=== PATIENT | male | born 1960 | race Caucasian/White ===

== ENCOUNTER 2016-06-15 17:38 | Emergency (ER) | payer BC ==
[~2016-06-15] VITALS: Ht 182.9 cm; Wt 75.3 kg
[~2016-06-15 17:38] MED LIST: ACYCLOVIR800 MG PO; AVODART0.5 MG PO; FLOMAX0.4 MG PO; GABAPENTIN300 MG PO; JALYN 0.5 MG-0.1 CAP PO; PERCOCET 5/3251 EACH PO; PHENERGAN 25MG.25 M1 PO; PRILOSEC40 MG PO; TAMIFLU 75MG CA75 MG PO; VALACYCLOVIR1 GM PO
[2016-06-15 18:00] LABS: HEMOGLOBIN 14.6 g/dL (14.1-18.0); LYMPH # 2.2 K/mm3 (0.7-4.5)
--- NOTE | 2016-06-15 19:20 | Emergency Room Report ---
History of Present Illness Time Seen by [id number] Presenting Problem in Triage Pt arrived:Walked Presenting Problem:DIAGNOSED WITH THE FLU AND STARTED ON [facility] STATES HE CAN'T KEEP ANYTHING "DOWN OR IN" AND IS COUGHING ALOT Onset of symptoms date/time:/ or onset unknown for:MEDICAL HX UNKNOWN Treatment Prior to Arrival: [employer] Provided by:SELF Sepsis Risk Assessment: Temp: 97.9 B/P: 141/80 MAP: 100 Pulse: 75 Resp: 18 Recent fever? N Clinical Suspician of Infection? N Mental Status: 1 - Regular (Normal Baseline) Sepsis Risk:Low Sepsis Risk Have you (or family members/close friends) recently traveled outside the [place]? N If Yes, where/when: Have you had exposure to infectious disease within the past month? TB? Other? Specify: Comment The patient has been sick since Thursday 5 days ago. He has a cough, vomiting, slight diarrhea. He was seen in the urgent treatment center on 06/12/16 and had a positive influenza B test. He was started on Tamiflu. He is on Tessalon Perles. He says none of this is helping, he thinks the Tamiflu is making him worse, and he is thinks it makes him vomit. He says the Tessalon Perles did not help the cough. He thinks he has vomited 3 times today. ALLERGIES Coded Allergies: ciprofloxacin (From CIPRO) (Mild, 06/15/16) prednisone (Mild, 06/15/16) Home Medications Active Scripts VALACYCLOVIR HCL (Valacyclovir) 1 GM PO TID #30 TAB Prov: 11/01/12 Oxycodone 5MG/[id number] (Oxycodone-Acetaminophen 5-325) 1-2 TAB PO Q4HP #30 TAB Prov: 11/01/12 Gabapentin (Gabapentin 300MG) 300 MG PO TID #90 CAP Prov: 11/01/12 Oseltamivir Phosphate (Tamiflu 75MG Capsule) 75 MG PO BID #10 CAP Prov: 06/12/16 Promethazine Hydrochloride (Phenergan 25MG Tab) 25 MG PO Q6H PRN #20 TAB Prov: 10/28/12 Reported Medications DUTASTERIDE/TAMSULOSIN HCL (Bria 0.5-0.4 MG Capsule) 1 CAP PO DAILY Omeprazole (Prilosec 40mg Cap) 40 MG PO DAILY History Medical History General CAD? No Angina: No DC: No Hypertension? No Hyperlipidemia? No CHF? No DVT? No PE? No COPD? No Asthma? No Anemia? No GERD? No Gastric ulcers? No GI Bleed? No Hernia? Yes Thyroid Problems? No Hypothyroidism? No CVA? No Seizures? No Diabetes? No Renal Insuffiency? No End Stage Renal Disease? No UTI? Yes Stones? No BPH? No GB Disease: No Nephritic Syndrome? No Asplenia? No Hepatitis? No Sickle Cell Disease? No Arthritis? Yes Migraines? No Cataracts? Yes Glaucoma? No MRSA? Yes HIV? No TB? No Anxiety? No Depression? No Cancer? No More? No Immunization Hx Ped.Immunizations UTD Yes DT/Tetanus 1-4 YRS Flu 2011-FSN Pneumonia 11/01/2012 Surgical Hx Previous Surgery?Y LT GREAT TOENAIL REMOVED RT KNEE ARTHROSCOPY HERNIA REPAIR (LEFT) Family History Family Hx Diabetes Yes CAD Yes Hypertension Yes Hyperlipidemia Yes Cancer No TB No Social History Smoking Hx Smoker: Never Smoker Tobacco: No Type N/A Are you/the child exposed to second-hand smoke: No Alcohol Alcohol: No Review of Systems All Other Systems Reviewed and Negative Constitutional fever Respiratory cough Gastrointestinal diarrhea, vomiting Physical Exam Vital Signs Vital Signs Date Time Temp Pulse Resp B/P Pulse O2 O2 Flow FiO2 Ox Delivery Rate 06/15 1744 97.9 75 18 141/80 98 General Appearance normal appearance, WD/WN Eye Exam - bilateral eye normal exam, bilateral eye PERRL, bilateral eye EOMI Ear, Nose, Throat hearing grossly normal, normal ENT inspection Neck normal inspection, non-tender, supple, full range of motion Respiratory Status Yes: trachea midline, chest symmetrical, non tender chest. No: respiratory distress. Lung Sounds bilateral: normal breath sounds, lungs clear. 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 No Results/Orders Laboratory Tests 06/15/16 1752: Sodium 136, Potassium 3.8, Chloride 103, Carbon Dioxide 30, BUN 16, Creatinine 0.9, Estimated Creat Clear 95, Estimated GFR (MDRD) 87, Glucose 106, Calcium 8.6 , Total Bilirubin 0.5, AST 23, ALT 31, Alkaline Phosphatase 72, Total Protein 7.0, Albumin 3.4, Globulin 3.6 H, Albumin/Globulin Ratio 0.9 L, WBC 6.5, RBC 4.48 L, Hgb 14.6, Hct 41.8 L, MCV 93.4, RDW 12.2, Plt Count 167, MPV 7.0 L, Gran % 59.5, Gran # 3.8, Lymphocytes % 34.0, Monocytes % 5.4, Eosinophils % 0.9, Basophils % 0.1, Lymphocytes # 2.2, Monocytes # 0.4, Eosinophils # 0.1, Basophils # 0.0, PUBS MCHC 34.8, MCH 32.5 H Current Medication Orders Sig/Pedro Start time Last Medication Dose Route Stop Time Status Admin Ondansetron HCl 4 MG ONCE ONE 06/15 1929 DC IV 06/15 193 Sodium Chloride 1,000 ML .Q1H1M 06/15 193 AC IV 06/15 2029 Sodium Chloride 10 ML PRN PRN 06/15 1800 AC IV 06/16 174 Orders Procedure Date/time Status IV SALINE LOCK 06/15 174 Active CBC WITH AUTO DIFF 06/15 174 Complete CHEM 12 PROFILE 06/15 174 Complete XRAY/CT/US XRAY/CT/US XRAY chest Comment X-ray interpreted by Lg Amaral M.D. No infiltrate, pneumothorax, pleural effusion, or wide mediastinum. Departure Departure Disposition DC Home or Self Care(routine) Clinical Impression Primary Impression: Influenza B Condition STABLE Patient Instructions DI for Influenza -- Adult Additional Instructions You may stop taking Tamiflu. Continue Tylenol or ibuprofen for fever and aches. Phenergan with codeine cough medicine and Zofran as needed. Prescriptions Current Visit Scripts PROMETHAZINE HCL/CODEINE (Promethazine-Codeine Syrup) 10 ML PO Q4HP PRN cough #240 ML Ondansetron (Zofran 4MG Odt) 4 MG PO Q8HP PRN NAUSEA AND VOMITING #10 ODT ED Critical Care Critical Care No at 1934
--- NOTE | 2016-06-15 19:29 | RADIOLOGY REPORT PS360 ---
CHEST(2 VIEWS-NOT PORTABLE) INDICATION: Fluid symptoms, cough COMPARISON: None FINDINGS: The lung lora are well expanded and appear clear of infiltrate. The cardiomediastinal silhouette and vascularity are normal. The costophrenic angles are clear. The bony thorax is normal. IMPRESSION: Normal chest.
--- NOTE | 2016-06-15 19:29 | RADIOLOGY REPORT PS360 ---
CHEST(2 VIEWS-NOT PORTABLE) INDICATION: Fluid symptoms, cough COMPARISON: None FINDINGS: The lung loar are well expanded and appear clear of infiltrate. The cardiomediastinal silhouette and vascularity are normal. The costophrenic angles are clear. The bony thorax is normal. IMPRESSION: Normal chest.
[2016-06-15] MEDS ORDERED: ZOFRAN ODT4 MG PO (19:33)
[2016-06-15] MEDS ORDERED: PROMETHAZINE/C120 ML PO (19:33)
[2016-06-15 20:12] VITALS: BP 109/57
== END 2016-06-15 20:30 | disposition home or self-care (01) ==
LOC: ER 17:38
PROVIDERS: Emergency Medicine
DX: J11.1 Influenza due to unidentified influenza virus with other respiratory manifestations (principal)
CPT/HCPCS: J2405